=== PATIENT | male | born 1995 | race Caucasian/White ===

== ENCOUNTER 2021-05-17 17:50 | Emergency (ER) | payer OTHER, SELFPAY ==
[2021-05-17 18:29] VITALS: BP 128/68; PULSE 86; RESP 18; TEMP 36.9; O2SAT 97; BMI 25.9
[2021-05-17 19:30] LABS: Glucose Urine UA NEG (NEG); Leukocyte Esterase Urine NEG (NEG); Nitrite Urine NEG (NEG); PH 6.5 (5.0-8.0); Urine Blood NEG (NEG); Urine Ketones NEG (NEG); Urine Protein TRACE MG/DL (NEG-TRACE)
[2021-05-17 19:33] LABS: Appearance Urine CLEAR; Color Urine YELLOW
[2021-05-17 19:47] LABS: Amphetamine Screen Urine Not Detected (Not Detect); Barbiturates, Urine Not Detected (Not Detect); Benzodiazepines Screen Urine Not Detected (Not Detect); Cannabinoid Screen Urine POSITIVE (Not Detect); Cocaine Screen Urine Not Detected (Not Detect); Opiate Screen Urine Not Detected (Not Detect); Phencyclidine Screen Urine Not Detected (Not Detect)
[2021-05-17 19:51] LABS: COVID-19 Test Negative (Negative); IDNOW Serial# 9DD0AD1C
[2021-05-17 19:52] LABS: Mucus Urine 1+ /LPF; RBC Urine 0 /HPF (0); Squamous Epithelial Cell Urine 1+ /LPF; WBC Urine 0-2 /HPF (0-4)
--- NOTE | 2021-05-17 20:22 | ED.PSYCH ---
HPI - Psych General Chief Complaint: Psychiatric Symptoms Stated Complaint: SI WITH PLAN Time Seen by Provider: 05/17/21 20:22 Source: patient and family Mode of arrival: EMS Limitations: language barrier History of Present Illness HPI Narrative: Patient is slightly developmentally delayed with history of seizures with mood swings and anger problem was upset with other family member and through bug spray misunderstood by the family thought that patient wanted to kill himself and others at home and called the EMS, on arrival in ED patient's grandmother told what happened and patient denies any suicidal or homicidal ideation at home calm at this time Review of Systems Review of Systems: Yes Unobtainable due to mental status PMFSH Past Medical History Medical History Seizures Social History Social History Advance Directives: No Advance Directives Information Provided: No Physical Exam Vital Signs: Vital Signs: Last Vital Signs Temp 98.5 F 05/17/21 18:29 Pulse 86 05/17/21 18:29 Resp 18 05/17/21 18:29 BP 128/68 05/17/21 18:29 Pulse Ox 97 05/17/21 18:29 Body Mass Index 25.9 Appearance: Alert. Oriented X3. No acute distress. Eyes: PERRLA, No Nystagmus ENT: Pharynx normal. Oral Mucosa moist Neck: Normal inspection. Neck supple. CVS: Normal heart rate and rhythm. Pulses normal. Respiratory: No respiratory distress. Equal air entry bilateral, no wheezing/rales/rhonchi Abdomen: Soft and nontender. Bowel sounds are present, no mass palpable, no CVA tenderness Skin: Skin warm and dry. Normal skin color. Normal skin turgor. Extremities: No lower extremity edema. No calf tenderness Neuro: Oriented X 3. No motor deficit. No sensory deficit.No cerebellar signs , cranial nerves II-XII intact psych: Stable mood no suicidal ideation or homicidal feelings at baseline MDM - Psych Lab Data Labs: Lab Results 05/17/21 05/17/21 05/17/21 Range/Units 19:16 19:18 19:18 Urine Color YELLOW Urine Appearance CLEAR Urine pH 6.5 (5.0-8.0) Ur Specific [place] 1.020 (1.005-1.025) Urine Protein TRACE (NEG-TRACE) MG/DL Urine Glucose (UA) NEG (NEG) MG/DL Urine Ketones NEG (NEG) MG/DL Urine Blood NEG (NEG) Urine Nitrite NEG (NEG) Ur Leukocyte Esterase NEG (NEG) Urine RBC 0 (0) /HPF Urine WBC 0-2 (0-4) /HPF Ur Squamous Epith Cells 1+ /LPF Urine Bacteria NONE /LPF Urine Mucus 1+ /LPF Urine Opiates Screen Not Detected (Not Detect) Ur Barbiturates Screen Not Detected (Not Detect) Ur Phencyclidine Scrn Not Detected (Not Detect) Ur Amphetamines Screen Not Detected (Not Detect) U Benzodiazepines Scrn Not Detected (Not Detect) Urine Cocaine Screen Not Detected (Not Detect) U Marijuana (THC) Screen POSITIVE H (Not Detect) COVID-19 (SAMMI) Negative (Negative) COVID-19 Clin Com See Note Discharge Plan Discharge Clinical Impression: Irritability and anger Patient Disposition: Home, Self-Care Instructions: Mood Disorders (ED) Additional Instructions: Take your medications as prescribed by psychiatrist Controller anger as advised Follow-up with therapist Interventions: ED Discharge Assessment Last Done: 05/17/21 20:26 Discharge Date/Time: 05/17/21 20:37
== END 2021-05-17 20:37 | disposition home or self-care (01) ==
PROVIDERS: Physician Assistant; Emergency Provider Internal Medicine
DX: R45.4 Irritability and anger (principal); Z20.822 Contact with and (suspected) exposure to COVID-19
CPT/HCPCS: 36415; 80307; 81001; 87635; 99283

== ENCOUNTER 2021-06-10 12:16 | Emergency (ER) | payer OTHER, SELFPAY ==
--- NOTE | 2021-06-10 12:18 | ED_ITS ---
HPI - Psych General Chief Complaint: Psychiatric Symptoms Stated Complaint: SECTION 12 Time Seen by Provider: 06/10/21 12:18 Source: patient, EMS and old records reviewed Mode of arrival: EMS Limitations: no limitations History of Present Illness HPI Narrative: 25 y/o male with history of seizures, development delay (?CP), who presents to the ER from home via EMS after he made threats to stab and kill his entire family. Reportedly he was having a fight with his stepfather and the stepfather's son. Their dog defecated in his bedroom and he became enraged. Stepfather was concerned he would actually follow through with his threats so he called 911. On arrival patient denies any thoughts of harm to self or family. He admits to occasional marijuana use but denies any other drug use or ETOH use. Upon review of records, he was seen here in April for similar anger episodes at home. MD complaint: homicidal ideation Onset (ago): hour(s) Duration: resolved prior to arrival History of same: Yes Relieving factors: none Exacerbating factors: none Context: significant life stressor Associated psychiatric symptoms: none Associated symptoms: denies other symptoms Treatments prior to arrival: placed on mental health hold (section 12 by police ) Related Data Home Medications Medication Instructions Recorded Confirmed oxcarbazepine 300 mg PO BID 06/10/21 06/10/21 Allergies Allergy/AdvReac Type Severity Reaction Status Date / Time Unable to Assess Allergy Unverified 06/10/21 12:42 Review of Systems Review of Systems: Constitutional: No Fever, No Chills ENT/Mouth: No sore throat, No Rhinorrhea, No Swallowing Difficulty Cardiovascular: No Chest Pain, No SOB, No Orthopnea, No Edema Respiratory: No Cough, No Sputum, No Wheezing, No dyspnea Gastrointestinal: No Nausea, No Vomiting, No Diarrhea, No abdominal Pain Genitourinary: No Dysuria, No Urinary Frequency, No Hematuria Musculoskeletal: No joint pain, No Myalgias Skin: No Skin Lesions, No rash Neuro: No Weakness, No Numbness, No Dizziness, No Headache Psych: No Anxiety/Panic, No Depression, No SI, No HI, No AH, no VH Heme/Lymph: No Bruising, No Lymphadenopathy Endocrine: No Polyuria, No Polydipsia PMFSH Past Medical History Attestation statement: The following information was validated with the patient. Medical History Seizures Social History Social History Advance Directives: No Advance Directives Information Provided: No Physical Exam Vital Signs: Vital Signs: Last Vital Signs Resp 18 06/10/21 12:33 Body Mass Index 27.6 Appearance: Alert. Oriented X3. No acute distress. Eyes: Pupils equal, round and reactive to light. ENT: Pharynx normal. Neck: Normal inspection. Neck supple. CVS: Normal heart rate and rhythm. Pulses normal. Respiratory: No respiratory distress. Breath sounds normal. Abdomen: Soft and nontender. +BS x4 Skin: Skin warm and dry. Normal skin color. Normal skin turgor. No rashes. Extremities: No lower extremity edema. Right hand contracture Neuro: Oriented X 3. No motor deficit. No sensory deficit. Speaks in complete sentences. Makes eye contact. Denies SI, HI, AH, VH. Course Course Course Narrative: 25 y/o male presenting to the ER via EMS after making homocidal statements to his family this morning after a verbal altercation. Now resolved. Calm and cooperative on arrival. History of the same. Will check utox and get N to see him. He was placed on a section 12 by police. Reevaluation(s) Reevaluation #1: Spoke with aunt who is at the bedside and witnessed the events at home. He was reportedly screaming about killing himself as well as everyone in his family. She reports a history of outbursts like this in the past and nothing is ever done about it. She wants him to be on more medications. He is currently on Tripletal only for history of seizures. No recent seizures per his report. Med rec pending. Physician observation started at 2:30pm. Patient placed in physician observation because patient is awaiting [facility] evaluation for the possible need of inpatient psych admission. At the time observation was started patient's vital signs were stable. Patient is alert and oriented. Neuro exam is non-focal. CV: RRR and lungs are clear. Will continue to monitor. Consultations Consultation #1: [facility] Discharge Plan Discharge Clinical Impression: Mood disorder Prescriptions: No Action oxcarbazepine 150 mg Tablet 300 mg PO BID RF: 0
[2021-06-10 12:33] VITALS: BP 115/73; PULSE 86; RESP 18; O2SAT 99; BMI 27.6
--- NOTE | 2021-06-10 14:55 | PHA.MEDREC ---
Pharmacy Consult ? Medication Reconciliation Pharmacy has completed the medication reconciliation.
[2021-06-10 18:50] VITALS: BP 132/83; PULSE 69; RESP 16; TEMP 36.2; O2SAT 97
[2021-06-10 19:21] LABS: Amphetamine Screen Urine Not Detected (Not Detect); Barbiturates, Urine Not Detected (Not Detect); Benzodiazepines Screen Urine Not Detected (Not Detect); Cannabinoid Screen Urine POSITIVE (Not Detect); Cocaine Screen Urine Not Detected (Not Detect); Opiate Screen Urine Not Detected (Not Detect); Phencyclidine Screen Urine Not Detected (Not Detect)
--- NOTE | 2021-06-10 21:10 | MHC.CARE ---
[facility] unable to send clinician to evaluate pt until the morning. Pt's family advocating that pt be discharged home, sharing that he has a developmental disability and has been having an increase in seizures which have been having an impact on his mood and has been demonstrating episodes of significant emotional dysregulation and no distress tolerance over the past month. He has an appointment scheduled with his PCP later this week at [facility] to discuss his anti-seizure medication and his mother plans to request assessment and treatment for the recent changes in his mood. This comic book writer spoke with the pt and his aunt in person and his mother and father (Hugo [phone]) by phone. There are no imminent safety concerns at this time and pt has been calm and cooperative since his arrival to the ED. ED provider was consulted re: the pt, discussed plan for discharge home with family.
[2021-06-10] MEDS: OXcarbazepine 300 MG TABLET PO (21:19)
== END 2021-06-10 21:31 | disposition home or self-care (01) ==
PROVIDERS: Physician Assistant; Emergency Provider Emergency Medicine
DX: F39 Unspecified mood [affective] disorder (principal); R56.9 Unspecified convulsions; Z79.899 Other long term (current) drug therapy
CPT/HCPCS: 80307; 99284; 99285

== ENCOUNTER 2025-09-18 17:27 | Emergency (ER) | payer OTHER, SELFPAY ==
--- NOTE | ~2025-09-18 | CT_ITS ---
CLINICAL HISTORY: pain CT cervical spine without contrast Comparison: None provided Findings: Normal vertebral body alignment. Degenerative changes at the C5-6 level with disc height loss and vertebral spondylosis. There is mild central canal narrowing at this level with an AP diameter of 8 mm. [id number] bilateral foraminal narrowing. No significant degenerative change of the levels in the cervical spine. No acute fractures or dislocations. Visualized intracranial contents are unremarkable. No cervical fluid collections or masses. No apical pneumothorax. IMPRESSION: No acute fracture deformity. Discogenic degenerative change at C5-6 with mild central canal narrowing and [id number] bilateral foraminal narrowing. This document has been electronically signed by: Phillip Fernández MD on 09/18/2025 19:18:08
[2025-09-18 17:45] VITALS: BP 129/63; PULSE 66; RESP 14; TEMP 36.6; O2SAT 95; BMI 24.6
--- NOTE | 2025-09-18 17:48 | ED_ITS ---
HPI - General Adult General Chief complaint: Back Pain/Injury Stated complaint: neck pain Time Seen by Provider: 09/18/25 20:39 Source: patient and family (Mother,aunt and brother) Mode of arrival: ambulatory Limitations: no limitations History of Present Illness ED Provider: Dr. Omar Penaloza HPI narrative: 30-year-old male with past medical history significant for cognitive delay, mood disorder, seizure disorder presents for evaluation for evaluation left-sided neck pain. The patient's mother states that he had a seizure on 09/14/2025 (4 days prior) and since that time he has been having pain in the left side of his neck. The patient has also had nausea with no vomiting. Mother states that she has been giving him Tylenol with no relief of his pain. Patient complained of nausea but no vomiting. He denied fever, chills, cough, chest pain or shortness of breath. He denied numbness or weakness of his arms or legs. Related Data Home Medications ?Medication ?Instructions ?Recorded ?Confirmed oxcarbazepine 150 mg tablet 300 mg PO BID 06/10/21 Previous Rx's ?Medication ?Instructions ?Recorded acetaminophen 500 mg tablet 1,000 mg (2 x 500 mg) PO Q 6H PRN 09/18/25 (Tylenol Extra Strength) fever or pain #20 tabs cyclobenzaprine 10 mg tablet 10 mg PO TID PRN pain, mu scle 09/18/25 spasm #15 tabs ibuprofen 400 mg tablet 400 mg PO TID PRN fever or p ain 09/18/25 #30 tabs Allergies Allergy/AdvReac Type Severity Reaction Status Date / Time Unable to Assess Allergy Verified 09/18/25 17:46 Review of Systems 2 Review of Systems: Yes all other systems are reviewed and are negative [facility] Past Medical History [facility] Narrative: Social history: He lives at home with his mother. He is here in the emergency department with a his aunt and his brother. Patient's mother was on the phone while I was interviewing the patient. Medical History Seizures Social History Social History Smoked in Last 30 Days: No Use of substances other than those prescribed or required for medical reasons: No Advance Directives: No Advance Directives Information Provided: No Do you have a plan to hurt others: No Plan Physical Exam ED Vital Signs: Vital Signs - 24 hr 09/18/25 17:45 09/18/25 19:56 Temperature 98 F 97.9 F Pulse Rate 66 70 Respiratory Rate 14 16 Blood Pressure 129/63 130/70 Pulse Oximetry 95 95 Oxygen Delivery Method Room Air Room Air BMI result Body Mass Index 24.6 Vital signs were normal. Exam: General: Awake, alert in no distress Head: Normocephalic, atraumatic EENT: PERRL, sclera and conjunctiva are normal, mouth with no erythema or exudates Neck: Tenderness with balance and of the left trapezius muscle, no localized C- spine tenderness, difficulty with moving his head to the left secondary to pain Lung: breath sounds symmetric, no wheezing, no rales and no rhonchi Chest: symmetric movement, nontender Heart: regular rate and rhythm, normal S1, S2 no murmurs or rubs Abdomen: soft, non-tender, nondistended, normal bowel sounds Back: no vertebral tenderness, no CVAT Neuro: Awake, alert, oriented, normal speech, cranial nerves 2-12 intact, moves all extremities symmetrically Psych: Pleasant, cooperative Course Course Course Narrative: RME, this is a rapid medical exam performed by Maurice De Jesus please refer to primary provider for complete H&P- 30-year-old male with past medical history significant for cognitive delay, mood disorder, seizure disorder presents for evaluation and week pain. He reports increased neck pain and stiffness to the right-sided neck last couple of days. The patient's mother is concerned he may have injured it during a recent seizure. Plan for CT scan of the cervical spine, labs Medications Administered Discontinued Medications Generic Name Dose Route Start Last Admin Trade Name Freq PRN Reason Stop Dose Admin Cyclobenzaprine HCl 10 mg 09/18/25 20:56 09/18/25 21:09 Cyclobenzaprine Hcl 10 Mg Tablet PO 09/18/25 20:57 10 mg ONCE ONE Administration Ketorolac Tromethamine 60 mg 09/18/25 20:56 09/18/25 21:09 Ketorolac Tromethamine 60 Mg/2 Ml Vial IM 09/18/25 20:57 60 mg ONCE ONE Administration Medical Decision Making Medical Decision Making MDM Narrative: 30-year-old male with past medical history significant for cognitive delay, mood disorder, seizure disorder presents for evaluation for evaluation left-sided neck pain. The patient's mother states that he had a seizure on 09/14/2025 (4 days prior) and since that time he has been having pain in the left side of his neck. The patient has also had nausea with no vomiting. Mother states that she has been giving him Tylenol with no relief of his pain. Patient complained of nausea but no vomiting. He denied fever, chills, cough, chest pain or shortness of breath. He denied numbness or weakness of his arms or legs. Vital signs were normal. Exam did reveal tenderness and spasm of the left trapezius muscle with limited range of motion secondary to pain, neurologic exam was nonfocal. Differential diagnosis: ?Includes but is not limited to neck sprain, neck strain, cervical fracture, disc disease, anemia, electrolyte abnormalities Course: 21:17 My interpretation patient's laboratory evaluation is as follows: WBC elevated 11,600. CMP was normal. COVID-19 was positive. Influenza was negative. CT scan of the patient's cervical spine revealed no acute fracture, the patient does have degenerative disc disease at C5-C6 with mild central canal narrowing and bilateral foramen canal narrowing. Given the patient's physical exam I do not think that the C5-C6 finding explains his pain. The patient's pain is most likely secondary to musculoskeletal strain secondary to a seizure and I did discuss this with the patient and the patient's family. Patient was treated with Toradol 60 mg IM and Flexeril 10 mg orally. Patient was given a prescription for ibuprofen 400 mg q.6 hours PRN, extra-strength Tylenol 1000 mg q.6 hours PRN and Flexeril 10 mg TID PRN. Patient was given printed and verbal instructions and I did discuss these instructions in his family. The patient's COVID-19 infection is coincidental and he is relatively asymptomatic. I did discuss the current recommendations of treating COVID-19 similar to a upper respiratory cold virus with the patient and the patient's family. At this time I do not think that the patient has any specific medicines for COVID-19. Differential Diagnosis Differential Diagnoses: The differential diagnosis associated with the presentation includes (See above) Admission/Observation Consideration of admission/observation: Escalation of care including admission/observation considered (Yes) Lab Data [facility] Lab Attestation statement: I reviewed the patient's lab results. 09/18/25 19:41 09/18/25 19:41 Labs: Lab Results 09/18/25 Range/Units 19:41 WBC 11.6 H (4.8-10.8) X10*3/uL RBC 4.76 (4.60-5.80) X10*6/uL Hgb 15.3 (14.0-18.0) g/dl Hct 44.2 (42.0-52.0) % MCV 92.9 (80.0-98.0) fL MCH 32.1 (27.0-33.0) pg MCHC 34.6 (31.0-36.0) g/dl RDW 13.3 (11.0-16.0) % Plt Count 203 (160-400) X10*3/uL MPV 10.0 (9.4-12.4) fL Immature Gran % (Auto) 0.4 (0.0-0.4) % Neut % (Auto) 64.3 (45-73) % Lymph % (Auto) 23.7 (20-40) % Preston % (Auto) 10.4 (2-11) % Eos % (Auto) 0.9 (0-4) % Baso % (Auto) 0.3 (0-2) % Lymph # (Auto) 2.8 (1.2-4.9) X10*3/uL Preston # (Auto) 1.2 (0.1-1.2) X10*3/uL Eos # (Auto) 0.1 (0.0-0.4) X10*3/uL Baso # (Auto) 0.0 (0.0-0.2) X10*3/uL Abs Immat Gran (auto) 0.05 H (0.00-0.03) X10*3/uL Absolute Neuts (auto) 7.5 (2.0-8.3) x10*3/uL Absolute Nucleated RBC 0.000 (0.0-0.012) X10*3/uL Nucleated RBC % (auto) 0.0 (0.0-0.2) /100WBC Sodium 140 (135-145) mmol/L Potassium 4.2 (3.3-5.1) mmol/L Chloride 108 (96-108) mmol/L Carbon Dioxide 26 (22-29) mmol/L Anion Gap 10 L (12-20) BUN 12 (9-16) mg/dL Creatinine 0.84 (0.5-1.4) mg/dL Estim Creat Clear Calc 95.9 Estimated GFR > 60 Random Glucose 108 (60-115) mg/dL Calcium 9.2 (8.4-10.2) mg/dL Total Bilirubin 0.2 (0.0-1.0) mg/dL AST 28 (5-37) U/L ALT 35 (0-40) U/L Alkaline Phosphatase 97 (39-117) U/L Total Protein 7.4 (6.5-8.0) g/dL Albumin 4.5 (3.5-5.0) g/dL Lipase 30 (8-78) U/L COVID-19 (SAMMI) Positive A (Negative) COVID-19 Clin Com See Note Influenza Type A (GABI) Negative (Negative) Influenza Type B (GABI) Negative (Negative) Influenza A & B Note See Note Radiology Impression Discussion of test interpretation with radiology: I have reviewed the radiologist's reading. Radiologist Impression: CT cervical spine without contrast Comparison: None provided Findings: Normal vertebral body alignment. Degenerative changes at the C5-6 level with disc height loss and vertebral spondylosis. There is mild central canal narrowing at this level with an AP diameter of 8 mm. [id number] bilateral foraminal narrowing. No significant degenerative change of the levels in the cervical spine. No acute fractures or dislocations. Visualized intracranial contents are unremarkable. No cervical fluid collections or masses. No apical pneumothorax. IMPRESSION: No acute fracture deformity. Discogenic degenerative change at C5-6 with mild central canal narrowing and [id number] bilateral foraminal narrowing. This document has been electronically signed by: Phillip Fernández MD Independent Historian Clinical information obtained from an independent historian. History obtained from or confirmed by: Parent and Other (Aunt and brother) Prescription Management I considered prescription management with: Pain Medication (Ibuprofen and Tylenol) and Other (Anti spasmodic: Flexeril) Chronic Conditions Patient?s care impacted by: Other (Seizure disorder, developmental delay) Discharge Plan Discharge Clinical Impression: Acute neck sprain, Cervical disc disease, COVID-19 Patient Disposition: Home, Self-Care Instructions: Cervical Sprain (ED), COVID-19 (Coronavirus Disease 2019) (ED) Additional Instructions: The CT scan of your neck revealed no broken bones which is reassuring. You do have degenerative disc disease of the disc at C5-C6 but I do not think this is the cause of your pain. On your exam you have tenderness when I press on the muscles on the left side of your neck and you most likely strained/stretch these muscles when you had you were seizure. You were treated with a strong anti-inflammatory medicine Toradol 60 mg intramuscularly. You also received Flexeril (cyclobenzaprine) 10 mg orally here in the emergency department. Take ibuprofen 200 mg pills, 2 pills every 6 hours as needed for pain or fever. Take Tylenol (acetaminophen) 500 mg pills, 2 pills every 6 hours as needed for pain or fever. Take Flexeril (cyclobenzaprine) 10 mg pills, 1 pill every 6-8 hours as needed for pain or spasm. ?This medication will make you sleepy. ?Do not drive or work while taking this medication. Continue to apply ice for 15 minutes 4 to 6 times a day as the left side of your neck where your having the pain. Follow-up with your doctor in 2 days. Please return to the emergency department if your symptoms get worse or if you develop any symptoms that are concerning to you. Prescriptions: New cyclobenzaprine 10 mg tablet 10 mg PO TID PRN (Reason: pain, muscle spasm) Qty: 15 0RF acetaminophen [Tylenol Extra Strength] 500 mg tablet 1,000 mg PO Q6H PRN (Reason: fever or pain) Qty: 20 0RF ibuprofen 400 mg tablet 400 mg PO TID PRN (Reason: fever or pain) Qty: 30 0RF No Action oxcarbazepine 150 mg Tablet 300 mg PO BID Interventions: ED Discharge Assessment Last Done: 09/18/25 21:15 Discharge Date/Time: 09/18/25 21:17 Print Language: Greek
[2025-09-18 19:46] LABS: MANUAL DIFF FLAG NO
[2025-09-18 19:47] LABS: Hematocrit 44.2 % (42.0-52.0); Hemoglobin 15.3 g/dl (14.0-18.0); Imm Gran Abs Auto 0.05 X10*3/uL (0.00-0.03); Imm Gran Pct Auto 0.4 % (0.0-0.4); Lymphocytes Absolute Auto 2.8 X10*3/uL (1.2-4.9); Mean Corpuscular HGB Conc 34.6 g/dl (31.0-36.0); Mean Corpuscular Hemoglobin 32.1 pg (27.0-33.0); Mean Corpuscular Volume 92.9 fL (80.0-98.0); NRBC Abs Auto 0.000 X10*3/uL (0.0-0.012); NRBC Pct Auto 0.0 /100WBC (0.0-0.2); Platelet Count 203 X10*3/uL (160-400); Red Blood Count 4.76 X10*6/uL (4.60-5.80); White Blood Count 11.6 X10*3/uL (4.8-10.8)
[2025-09-18 19:56] VITALS: BP 130/70; PULSE 70; RESP 16; TEMP 36.6; O2SAT 95
[2025-09-18 19:56] LABS: COVID-19 Test Positive (Negative); IDNOW Serial# 55D5AD1C
[2025-09-18 20:03] LABS: IDNOW Serial# 08D9AD1C; Influenza B2 Negative (Negative)
[2025-09-18 20:06] LABS: Alanine Aminotransferase 35 U/L (0-40); Albumin Level 4.5 g/dL (3.5-5.0); Alkaline Phosphatase 97 U/L (39-117); Anion Gap 10 (12-20); Aspartate Amino Transferase 28 U/L (5-37); Blood Urea Nitrogen 12 mg/dL (9-16); Calcium 9.2 mg/dL (8.4-10.2); Carbon Dioxide 26 mmol/L (22-29); Chloride 108 mmol/L (96-108); Creatinine Clr Calc Pharmacy 95.9; Estimated Glomerular Filt Rate > 60; Lipase 30 U/L (8-78); Potassium 4.2 mmol/L (3.3-5.1); Sodium 140 mmol/L (135-145); Total Protein 7.4 g/dL (6.5-8.0)
[2025-09-18 21:15] VITALS: BP 128/68; PULSE 66; RESP 16; TEMP 36.6; O2SAT 98
--- OUTSIDE RECORDS SUMMARY | 2025-09-18 21:48 | XMS_ITS | Clinical Summary ---
Author Organization [facility] Address [address] [place] [address] Care Team Providers Care Office Messenger Name Role Phone Unavailable Primary Care Provider Unavailabl e Social History Tobacco Use Types Packs/Day Years Used Date Smoking Tobacco: Never Assessed Sex and Gender Information Value Date Recorded Sex Assigned at Not on file Legal Sex Male 2:10 PM EST Gender Identity Not on file Sexual Orientation Not on file Plan of Treatment Health Maintenance Due Date Last Done Comments DTaP,Tdap,and Td Vaccines (1 - Tdap) 2015 Hepatitis B Vaccines (1 of 3 - 19+ 3-dose series) 2015 HPV Vaccines (1 - 3-dose SCD M series) 2023 Depression Screening 11/29/2024 COVID-19 Vaccine (1 - 2023-2 5 season) 2025 Influenza Vaccine (#1) 2025 RSV Immunization Adult Patie nts (1 - 1-dose 75+ series) 2071 HIB Vaccines Aged Out No longer eligi ble based on patient's age to complete this topic Hepatitis A Vaccines Aged Out No long er eligible based on patient's age to complete this topic IPV Vaccines Aged Out No longer eligi ble based on patient's age to complete this topic MMR Vaccines Aged Out No longer eligi ble based on patient's age to complete this topic Meningococcal ACWY Vaccine Aged Out N o longer eligible based on patient's age to complete this topic Meningococcal B Vaccine Aged Out No l onger eligible based on patient's age to complete this topic Pneumococcal Vaccine: Pediat rics (0 to 5 Years) and At-Risk Patients (6 to 49 Years) Aged Out No longer eligible b ased on patient's age to complete this topic RSV Immunization Patients Un aarti 20 months Aged Out No longer eligible b ased on patient's age to complete this topic Varicella Vaccines Aged Out No longer eligible based on patient's age to complete this topic
== END 2025-09-18 21:17 | disposition home or self-care (01) ==
PROVIDERS: Physician Assistant; Emergency Provider Emergency Medicine Emergency Medical Services
DX: S13.4XXA Sprain of ligaments of cervical spine, initial encounter (principal); U07.1 COVID-19; M50.822 Other cervical disc disorders at C5-C6 level; R11.2 Nausea with vomiting, unspecified; X58.XXXA Exposure to other specified factors, initial encounter; Y93.9 Activity, unspecified; Y92.9 Unspecified place or not applicable; Y99.8 Other external cause status; Z79.899 Other long term (current) drug therapy
CPT/HCPCS: 36415; 72125; 80053; 83690; 85025; 87502; 87635; 96372; 99284; 99285; J1885

== ENCOUNTER → 2025-09-18 17:47 | Outpatient (BNV) | payer OTHER, SELFPAY | PROVIDERS: Visit Provider Radiology Diagnostic Radiology | DX: M50.322 Other cervical disc degeneration at C5-C6 level (principal); M48.02 Spinal stenosis, cervical region | CPT/HCPCS: 72125 ==